=== PATIENT | female | born 1995 | race Caucasian/White ===

== ENCOUNTER 2024-08-30 07:43 | Outpatient (CLI) | payer MEDICAID ==
[2024-08-30] VITALS (21 sets, daily range): BP systolic 107–125; BP diastolic 65–79; PULSE 73–94
== END 2024-08-30 23:59 | disposition home or self-care (01) ==
LOC: CARD DIAG 07:43
PROVIDERS: ATTEND Nurse Practitioner
DX: R40.20 Unspecified coma (principal); R40.4 Transient alteration of awareness
CPT/HCPCS: 93660